=== PATIENT | female | born 1990 | race Caucasian/White ===

== ENCOUNTER 2016-08-29 14:21 | Emergency (ER) | payer MEDICAID ==
[~2016-08-29 14:21] MED LIST: FER300 PO; LEVAQUIN750 MG PO; VITC PO
[2016-08-29 14:42] VITALS: BP 120/66
== END 2016-08-29 16:16 | disposition home or self-care (01) ==
LOC: ED 14:21
DX: S61.452A Open bite of left hand, initial encounter (principal); S61.451A Open bite of right hand, initial encounter; W57.XXXA Bitten or stung by nonvenomous insect and other nonvenomous arthropods, initial encounter; Y93.89 Activity, other specified; Y99.8 Other external cause status; Y92.89 Other specified places as the place of occurrence of the external cause

== ENCOUNTER 2017-06-28 12:02 | Emergency (ER) | payer MEDICAID ==
[~2017-06-28] VITALS: Ht 154.9 cm; Wt 55.5 kg
[2017-06-28 12:10] VITALS: Ht 154.9 cm; Wt 55.5 kg
[2017-06-28 13:17] VITALS: BP 107/55
== END 2017-06-28 13:17 | disposition home or self-care (01) ==
LOC: ED 12:02
DX: J02.9 Acute pharyngitis, unspecified (principal)
CPT/HCPCS: Q0162

== ENCOUNTER 2017-11-05 20:21 | Emergency (ER) | payer MEDICAID ==
[~2017-11-05] VITALS: Ht 154.9 cm; Wt 48.2 kg
[2017-11-05 20:35] VITALS: Ht 154.9 cm; Wt 48.2 kg
[2017-11-05 22:29] LABS: BASOPHIL % 0.6 % (0-2); PLATELET COUNT 333 x10^3mcL (130-400)
[2017-11-05 22:30] LABS: RED CELL DISTRIBUTION WIDTH 16.3 % (11.5-14.5)
[2017-11-05 22:31] LABS: CARBON DIOXIDE 25.9 mmol/L (21-32); CHLORIDE SERUM 107 mmol/L (98-107); CREATININE SERUM 0.6 mg/dL (0.6-1.0); GFR1 > 60 mL/min; GLUCOSE SERUM 109 mg/dL (74-106); POTASSIUM SERUM 3.3 mmol/L (3.5-5.1); SODIUM SERUM 141 mmol/L (136-145)
[2017-11-05 22:35] LABS: ALKALINE PHOSPHATASE 80 U/L (46-116); ALT/SGPT 15 U/L (14-59); AST/SGOT 9 U/L (15-37); BILIRUBIN TOTAL 0.1 mg/dL (0.20-1.00); LIPASE 370 IU/L (73-393); TOTAL PROTEIN, SERUM 6.4 g/dL (6.4-8.2)
[2017-11-05 22:37] LABS: ALBUMIN 3.1 g/dL (3.4-5.0)
[2017-11-06 00:54] VITALS: BP 90/51
== END 2017-11-06 00:54 | disposition home or self-care (01) ==
LOC: ED 20:21
PROVIDERS: Student in an Organized Health Care Education/Training Program
DX: K29.70 Gastritis, unspecified, without bleeding (principal); K21.9 Gastro-esophageal reflux disease without esophagitis; Z86.2 Personal history of diseases of the blood and blood-forming organs and certain disorders involving the immune mechanism
CPT/HCPCS: 36415; Q0162

== ENCOUNTER 2018-04-07 21:07 | Emergency (ER) | payer BC ==
[~2018-04-07] VITALS: Ht 154.9 cm; Wt 61.2 kg
[2018-04-07 21:11] VITALS: Ht 154.9 cm; Wt 61.2 kg
[2018-04-07 23:27] LABS: PLATELET COUNT 271 x10^3mcL (130-400); RED CELL DISTRIBUTION WIDTH 13.5 % (11.5-14.5)
[2018-04-07 23:35] LABS: CALCIUM 8.2 mg/dL (8.5-10.1); CARBON DIOXIDE 27.7 mmol/L (21-32); CHLORIDE SERUM 108 mmol/L (98-107); CREATININE SERUM 0.7 mg/dL (0.6-1.0); GFR1 > 60 mL/min; GLUCOSE SERUM 111 mg/dL (74-106); POTASSIUM SERUM 3.9 mmol/L (3.5-5.1); SODIUM SERUM 143 mmol/L (136-145)
[2018-04-07 23:40] LABS: ALBUMIN 3.4 g/dL (3.4-5.0); ALKALINE PHOSPHATASE 73 U/L (46-116); ALT/SGPT 16 U/L (14-59); AST/SGOT 11 U/L (15-37); BILIRUBIN TOTAL 0.1 mg/dL (0.20-1.00); LIPASE 210 IU/L (73-393); TOTAL PROTEIN, SERUM 6.9 g/dL (6.4-8.2)
[2018-04-08 00:46] VITALS: BP 90/62
== END 2018-04-08 00:47 | disposition home or self-care (01) ==
LOC: ED 21:07
PROVIDERS: Emergency Medicine
DX: K29.70 Gastritis, unspecified, without bleeding (principal); Z98.890 Other specified postprocedural states; K92.0 Hematemesis
CPT/HCPCS: J2405; J3490; J7030; Q0092

== ENCOUNTER 2018-09-08 13:01 | Emergency (ER) | payer BC ==
[~2018-09-08] VITALS: Ht 154.9 cm; Wt 59.9 kg
[2018-09-08 13:25] VITALS: Ht 154.9 cm; Wt 59.9 kg
[2018-09-08 17:08] VITALS: BP 95/60
== END 2018-09-08 17:08 | disposition home or self-care (01) ==
LOC: ED 13:01
DX: S43.401A Unspecified sprain of right shoulder joint, initial encounter (principal); Z86.2 Personal history of diseases of the blood and blood-forming organs and certain disorders involving the immune mechanism; X50.0XXA Overexertion from strenuous movement or load, initial encounter; Y93.89 Activity, other specified; Y92.89 Other specified places as the place of occurrence of the external cause; Y99.8 Other external cause status